=== PATIENT | male | born 1940 | race Caucasian/White ===

== ENCOUNTER → 2017-02-13 | Outpatient (CLI) | payer OTHER, BC ==
[~2017-02-13] MED LIST: ACETAMINOPHEN325 M1 PO; ADVAIR 500-501 EACH INH; AMBEREN PO; ASPIR 8181 MG PO; AVELOX 400 MG400 MG PO; CARISOPRODOL 3350 MG PO; CLONIDINE0.1 PO; DILAUDID2 M1 PO; DUONEB 2.5-0.5 M3 ML INH; FLEXERIL PO; LANSOPRAZOLE30 MG PO; MEGARED OMEGA-1 EAC2 PO; MIRALAX255 GM PO; MS CONTIN15 MG PO; MS CONTIN30 MG PO; MUCINEX FAST-M177 ML PO; MUCUS RELIEF D; MULTIVITAMINS PO; NORCO 10-325 T1 EACH PO; NORCO 5-325 TA1 EACH PO; NYSTATIN 1100000 U/M PO; PACERONE 200 M200 M1 PO; PREDNISONE 10 M10 M1 PO; PREDNISONE 10 M10 MG PO; PREVACID 30MG C30 M1 PO; PROVENTIL INH; RELAFEN750 MG OR; ROCEPHIN 11 GM/100 M IV; SENOKOT-S TABL1 EACH PO; SENOKOT-S1 TA1 PO; SINGULAIR 10 MG10 M1 PO; XARELTO20 MG PO; ZYRTEC 10 MG TA10 MG PO; ZYRTEC10 M2 PO
== END ==
LOC: RAD 02:03
DX: J45.909 Unspecified asthma, uncomplicated (principal); R05 Cough

== ENCOUNTER → 2018-01-11 | Outpatient (CLI) | payer OTHER, BC ==
[~2018-01-11] MED LIST changes: +ALENDRONATE SOD70 MG PO; +ATENOLOL 100MG100 MG PO; +CARDIZEM CD180 MG PO; +DIGOXIN250 MCG PO; +ELIQUIS5 MG PO; +KLOR-CON 1010 MEQ PO; +LASIX 40 MG TAB40 M2 PO; +LEVAQUIN 500 M500 M2 PO; +LISINOPRIL10 MG PO; +MULTAQ400 MG PO; +POTASSIUM20 PO; +PREDNISONE 5 MG5 M1 PO; +TRELEGY ELLIPT1 EACH INH; +ZYRTEC10 M5 PO
--- NOTE | ~2018-01-11 | 2DMMODE ---
[facility] [address] [place] [address] 2 D/M-MODE ECHOCARDIOGRAM Name: DONA EUGENE Room #: REG [facility]#: [id number] Admission: 01/11/18 Attend Phys: Karthik Mohan MD Discharge: Date of : 40 Date of Service: 01/11/18 1048 Report #: [id number] THIS REPORT FOR: //name// APPROVED REPORT Study performed: 01/11/2018 09:54:08 EXAM: Comprehensive 2D, Doppler, and color-flow Echocardiogram Patient Location: Out-Patient Room #: Echo lab Status: routine BSA: 2.18 HR: 68 bpm BP: 132/84 mmHg Other Information Study Quality: Good Indications Atrial flutter 2D Dimensions LVEF(%): 69.50 (>50%) IVSd: 9.43 (7-11mm) LVOT Diam: 21.39 (18-24mm) LVDd: 56.78 mm PWd: 9.57 (7-11mm) Ascending Ao: 34.93 (22-36mm) LVDs: 34.28 (25-40mm) Aortic Root: 31.17 mm IVC: 19.00 mm Brandt's LVEF: 69.50 % Volumes Left Atrial Volume (Systole) Single Plane 4CH: 90.25 mL Single Plane 2CH: 71.08 mL LA ESV Index: 43.00 mL/m2 Aortic Valve AoV Peak Shakeel.: 1.78 m/s AO Peak Gr.: 15.43 mmHg LVOT Max P.13 mmHg LVOT Max V: 1.24 m/s ANAYELI Vmax: 2.49 cm2 AI Vmax: 4.32 m/s AI [place]: 1.34 m/s2 AI PHT: 937.27 ms Mitral Valve [facility] [place] [address] 2 D/M-MODE ECHOCARDIOGRAM Name: DONA EUGENE Room #: [facility]#: [id number] Admission: 01/11/18 Attend Phys: Karthik Mohan MD Discharge: Date of : 40 Date of Service: 01/11/18 1048 Report #: [id number] E/A Ratio: 1.7 MV Decel. Time: 174.53 ms MV E Max Shakeel.: 0.97 m/s MV A Shakeel.: 0.57 m/s MV PHT: 50.61 ms IVRT: 78.43 ms Pulmonary Valve PV Peak Shakeel.: 1.23 m/s PV Peak Gr.: 6.05 mmHg OR End Vmax: 1.70 m/s Pulmonary Vein P Vein S: 0.64 m/s P Vein A: 0.22 m/s P Vein D: 0.85 m/s P Vein A Dur.: 78.4 msec P Vein S/D Ratio: 0.75 Tricuspid Valve TR Peak Shakeel.: 2.93 m/s TR Peak Gr.: 34.66 mmHg PA Pressure: 40.00 mmHg Left Ventricle The left ventricle is normal size. There is normal left ventricular wall thickness. The left ventricular systolic function is normal. The left ventricular ejection fraction is within the normal range. LVEF is 55-60%. This study is not technically sufficient to allow evaluation of the LV diastolic function due to atrial flutter. Right Ventricle The right ventricle is normal size. The right ventricular systolic function is normal. Atria Left atrium is moderately dilated. Right atrium is moderately dilated. Aortic Valve The aortic valve is normal in structure. Aortic valve is calcified. Mild aortic regurgitation. There is no aortic valvular stenosis. Mitral Valve The mitral valve is normal in structure. Mild mitral regurgitation. No evidence of mitral valve stenosis. Tricuspid Valve [facility] [address] [place] [address] 2 D/M-MODE ECHOCARDIOGRAM Name: DONA EUGENE Room #: REG [facility]#: [id number] Admission: 01/11/18 Attend Phys: Karthik Mohan MD Discharge: Date of : 40 Date of Service: 01/11/18 1048 Report #: [id number] The tricuspid valve is normal in structure. There is mild tricuspid regurgitation. Estimated PAP 40 mmHg. There is mild-moderate pulmonary hypertension. Pulmonic Valve The pulmonary valve is normal in structure. Trace pulmonic regurgitation. Great Vessels The aortic root is normal in size. IVC is normal in size and collapses >50% with inspiration. Pericardium There is no pericardial effusion. <Conclusion> The left ventricle is normal size. There is normal left ventricular wall thickness. The left ventricular systolic function is normal. The right ventricle is normal size. Left atrium is moderately dilated. Right atrium is moderately dilated. Mild aortic regurgitation. Mild mitral regurgitation. There is mild tricuspid regurgitation. Estimated PAP 40 mmHg. <ELECTRONICALLY SIGNED> By: Karthik Mohan MD 01/11/18 1048 1048 1048 Karthik Mohan MD /INF
== END ==
LOC: CV 09:40
DX: I08.3 Combined rheumatic disorders of mitral, aortic and tricuspid valves (principal); I48.92 Unspecified atrial flutter

== ENCOUNTER → 2018-01-25 | Outpatient (CLI) | payer OTHER, BC | LOC: NUC 07:24 | DX: I48.92 Unspecified atrial flutter (principal); I10 Essential (primary) hypertension; J44.9 Chronic obstructive pulmonary disease, unspecified; Z87.891 Personal history of nicotine dependence ==

== ENCOUNTER 2018-05-10 04:53 | Inpatient (IN) | payer OTHER, BC ==
[~2018-05-10] VITALS: Ht 175.3 cm; Wt 98.7 kg
--- NOTE | ~2018-05-10 | EKG ---
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 : 1940 Requested By: Elkin Gordon Order Number: [id number] MD: Elkin Gordon Measurements Intervals [place] Rate: 103 P: VA: QRS: 64 QRSD: 127 T: -78 QT: 336 QTc: 440 Interpretive Statements Atrial fibrillation Right bundle branch block Baseline wander in lead(s) V3 Compared to ECG 05/10/2018 04:59:13 Right bundle-branch block now present Ventricular premature complex(es) no longer present Electronically Signed On 05-17-2018 10:06:04 CDT by Elkin Gordno [email or web address] <ELECTRONICALLY SIGNED> By: lEkin Gordon MD, [facility] 05/17/18 1006 0658 0658 Elkin Gordon MD, [facility] /EPI
--- NOTE | ~2018-05-10 | EKG ---
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 : 1940 Requested By: Dot Carpio Order Number: [id number] MD: Elkin Gordon Measurements Intervals [place] Rate: 129 P: LA: QRS: 69 QRSD: 125 T: 16 QT: 347 QTc: 509 Interpretive Statements Atrial fibrillation Premature ventricular complexes ST depr, consider ischemia, anterolateral lds Baseline wander in lead(s) II,III,aVF No previous ECGs available for comparison Electronically Signed On 05-10-2018 9:01:28 CDT by Elkin Gordon [email or web address] <ELECTRONICALLY SIGNED> By: Elkin Gordon MD, [facility] 05/10/18 0901 0459 0459 Elkin Gordon MD, [facility] /EPI
--- NOTE | ~2018-05-10 | PATH ---
[facility] [address] [place] [address] PATHOLOGY RPT PROCEDURE Name: DONA EUGENE Room #: 358-P [facility] IN ..#: [id number] Admission: 05/10/18 Date of : 40 Discharge: 05/17/18 Report #: [id number] Path Case #: [id number] Note [facility] Accession Number: [id number] TESTS RESULT FLAG UNITS REF RANGE LAB Clinician Provided Cytology Information No. of containers..01 Other (Miscellaneous) Source: BAL RUL DIAGNOSIS: 02 BAL RUL NEGATIVE FOR MALIGNANT CELLS. NORMAL BRONCHIAL CELLS AND MACROPHAGES ARE PRESENT. PULMONARY MACROPHAGES PRESENT, INDICATIVE OF LOWER RESPIRATORY TRACT SAMPLING. SPECIMEN CONSISTS OF HEMOSIDERIN-LADEN MACROPHAGES AND BLOOD. Signed out by: 02 Amber Rogers MD, Pathologist NPI- [id number] Performed by: 01 Mireille Becker, Sales Receptionist ([facility]) Gross description: 01 15 ML, WHITE, CLOUDY /LCS FLAG LEGEND: L-Low Normal,H-High Normal,LL-Alert Low,HH-Alert High <-Panic Low,>-Panic High,A-Abnormal,AA-Critical Abnormal Performed at: [address] [place] [address] Antonio De Oliveira MD, [address] [address] Amber Rogers MD, Performed at: [address], [place], [place] [id number] MD Antonio De Oliveira MD Phone: [phone]
--- NOTE | ~2018-05-10 | HC ---
[facility] [place] [address] CONSULTATION Name: VALORIEDONA Room #: 358-P [facility] IN M.R.#: [id number] Admission: 05/10/18 Attend Phys: Dell Crawley DO Discharge: Date of : 40 Report #: [id number] THIS REPORT FOR: //name// CC: Zachary Cash DATE OF SERVICE: 05/10/2018 REFERRAL PHYSICIAN: Dr. Dell Crawley. REASON FOR REFERRAL: Dyspnea. HISTORY OF PRESENT ILLNESS: The patient is a 78-year-old white male who presented to the Emergency Room with progressive dyspnea. A pulmonary consultation was requested. The patient has known severe persistent asthma. He is normally followed longitudinally by Dr. Binu Cash in the office. He was last seen in the office in 02/2018. Baseline FEV1 is 2.17 liters or 75% predicted. He is normally on inhaled corticosteroids along with long-acting beta agonist. He is also on low dose prednisone 5 mg once a day due to severe symptoms. He states that he was doing fairly well until 2 days prior to presentation when he started to develop chills. Yesterday, he started developing chest tightness and progressive dyspnea. With worsening symptoms, he presented to the Emergency Room. Chest x-ray on admission was clear. There are bibasilar fibroses with this previously been noted. He also had prior CT chest, confirming mild bibasilar subpleural pulmonary fibrosis. Otherwise, denies any chest pain, productive cough, nausea, vomiting, diarrhea. PAST MEDICAL HISTORY: As mentioned above. Severe persistent asthma, atrial flutter, mild bronchiectasis, history of tobacco abuse, having stopped smoking in 1999, hemoptysis, hypertension, echocardiogram in 06/2016 was relatively unremarkable except for mild aortic and mitral regurgitation, allergic rhinitis. PAST SURGICAL HISTORY: Notable for prior back surgery, herniorrhaphy, skin cancer resection, tonsillectomy, TURP. [facility] [address] [place] [address] CONSULTATION Name: VALORIEDONA Mena Room #: 358-[facility] IN ..#: [id number] Admission: 05/10/18 Attend Phys: Dell Crawley DO Discharge: Date of : 40 Report #: [id number] ALLERGIES: TO PENICILLIN, REACTIONS NOT SPECIFIED. HOME MEDICATIONS: Prednisone 5 mg once a day, Proventil 2 puffs p.r.n., Fosamax, Eliquis 5 mg once a day for atrial fibrillation, Zyrtec, dronedarone, Trelegy Ellipta 100 mcg/62.5 mcg/25 mcg, Prinivil, Singulair, multivitamins. FAMILY HISTORY: Notable for thyroid cancer in mother. Father with liver cancer. SOCIAL HISTORY: Tobacco history: As mentioned above. He denies any alcohol use. REVIEW OF SYSTEMS: As mentioned above, otherwise 10-point system review negative. PHYSICAL EXAMINATION: GENERAL: He is awake, alert, in no apparent distress. VITAL SIGNS: Temperature is 36.6 degrees Celsius, pulse is 100, respiratory rate is 20, blood pressure is 108/77 mmHg and saturation is 99%. HEENT: Normocephalic, atraumatic. NECK: Supple, without any lymphadenopathy or thyromegaly. CHEST: Breath sounds are decreased bilaterally with mild expiratory wheezes. No rales. CARDIOVASCULAR: Normal S1, S2. There are no murmurs or gallop. There is no JVD. There is no carotid bruit. Pulses are 2+/4+ bilaterally. ABDOMEN: Soft, nontender, moderately obese. No masses felt. GENITOURINARY: Deferred. RECTAL: Deferred. EXTREMITIES: There is no edema, cyanosis or clubbing. LABORATORY DATA: Chest x-ray as mentioned above. EKG shows atrial fibrillation, ST depression, possible ischemia. Otherwise, no other acute findings. D-dimer 0.3. Electrolytes are normal. Hemoglobin 14.7, WBC 9200, platelets are normal. IMPRESSION: 1. Acute respiratory distress in this 78-year-old white male. Etiology due to exacerbation of severe persistent asthma. No evidence of respiratory tract infection at this time, although the patient did have chills 24 hours prior to presentation. Early infection cannot be ruled out including lower respiratory tract infection. 2. Atrial fibrillation with rapid ventricular response, likely due to respiratory distress. 3. Chest pain, suspect atypical. Cardiology has been consulted. 4. Hypertension. [address] [address] CONSULTATION Name: DONA EUGENE Room #: 358-P ADM IN M.R.#: [id number] Admission: 05/10/18 Attend Phys: Dell Crawley DO Discharge: Date of : 40 Report #: [id number] RECOMMENDATIONS: Corticosteroids, bronchodilators, broad-spectrum antibiotics. DVT and GI prophylaxis will be addressed. Thank you for this consultation. <ELECTRONICALLY SIGNED> By: Myles Guerrier MD 05/11/18 1608 1327 1856 yMles Guerrier MD /nt
--- NOTE | ~2018-05-10 | P ---
[facility] [place] [address] PROCEDURE REPORT Name: VALORIEDONA Room #: 358-P [facility] IN M.R.#: [id number] Admission: 05/10/18 Attend Phys: Dell Crawley DO Discharge: Date of : 40 Report #: [id number] THIS REPORT FOR: //name// CC: Zachary Cash DATE OF SERVICE: 05/13/2018 PROCEDURE: Fiberoptic bronchoscopy with bronchoalveolar lavage in the anterior segment of the right upper lobe. INDICATION: Cavitary pulmonary nodule. ASA classification class 3. PROCEDURE NOTATION: After discussing risks and benefits of planned procedure with the patient, he desired to proceed. After obtaining informed consent, he was brought to chemical laboratory scientist 3, where he was placed on continuous cardiopulmonary monitoring and supplemental oxygen, then given 2% lidocaine nebulized to anesthetize the upper respiratory tract. Once complete, he received conscious sedation. A total of 3 mg of Versed and 25 mcg of fentanyl were titrated during the procedure to provide adequate sedation. Once accomplished, the patient was laid in supine posturing. When laid in supine posturing, within moments the patient's face became a bit erythematous and obvious wheezing was noted. There was some increased respiratory effort noted. Oxygen had to be titrated up during the procedure up to 15 liters by high flow nasal cannula to maintain saturations. Bronchoscope was passed through an oral bite block until vocal cords were visualized. 1% lidocaine was instilled in the vocal cords to provide topical anesthesia. Bronchoscope was then passed in the trachea. 1% lidocaine was instilled in the tracheobronchial tree to provide topical anesthesia. Airways were then surveyed. FINDINGS: Mainstem, lobar, segmental and subsegmental bronchi were explored. There was significant erythema diffusely. No endobronchial mass noted. Mucopurulent secretions were emanating from the right upper lobe, particularly at the anterior segment. Fluoroscopy was utilized to find the cavitary nodule; however, biopsies were not performed due to the patient's increased respiratory difficulties. A bronchial lavage was only performed in the anterior segment of the right upper lobe and sent for microbiologic and cytologic tests. The patient tolerated otherwise well with no noted complications. IMPRESSION: Cavitary right upper lobe, process likely infectious status post bronchoscopy with lavage. [address] [address] PROCEDURE REPORT Name: EUGENEDONA Room #: 358-P [facility] IN .R.#: [id number] Admission: 05/10/18 Attend Phys: Dell Crawley DO Discharge: Date of : 40 Report #: [id number] PLAN: Await microbiologic and cytologic tests. By: 1020 2218 Binu Cash MD /nt
--- NOTE | ~2018-05-10 | 2DMMODE ---
[facility] [address] [facility] [place] [address] 2 D/M-MODE ECHOCARDIOGRAM Name: DONA EUGENE Room #: 358-P [facility] IN ..#: [id number] Admission: 05/10/18 Attend Phys: Dell Crawley, Discharge: Date of : 40 Date of Service: 05/11/18 1743 Report #: [id number] THIS REPORT FOR: //name// APPROVED REPORT Study performed: 05/11/2018 14:54:48 EXAM: Comprehensive 2D, Doppler, and color-flow Echocardiogram Patient Location: Bedside Room #: [facility] Status: routine BSA: 2.20 HR: 115 bpm BP: 114/87 mmHg Rhythm: Atrial Fibrillation Other Information Study Quality: Adequate Indications COPD Atrial Fibrillation Dyspnea Hypertension/HDD 2D Dimensions RVDd: 49.13 mm LVEF(%): 66.10 (>50%) IVSd: 12.77 (7-11mm) LVOT Diam: 24.32 (18-24mm) LVDd: 45.27 mm PWd: 11.99 (7-11mm) Ascending Ao: 35.83 (22-36mm) LVDs: 28.85 (25-40mm) Aortic Root: 33.46 mm IVC: 29.00 mm Brandt's LVEF: 66.10 % Volumes Left Atrial Volume (Systole) Single Plane 4CH: 59.70 mL Single Plane 2CH: 47.02 mL LA ESV Index: 26.00 mL/m2 Aortic Valve AoV Peak Shakeel.: 1.39 m/s AO Peak Gr.: 9.34 mmHg LVOT Max P.75 mmHg LVOT Max V: 0.82 m/s ANAYELI Vmax: 2.75 cm2 [facility] [employer] [place] [address] 2 D/M-MODE ECHOCARDIOGRAM Name: DONA EUGENE Mena Room [facility]: [facility]#: [id number] Admission: 05/10/18 Attend Phys: Dell Crawley, Discharge: Date of : 40 Date of Service: 05/11/18 1743 Report #: [id number] Pulmonary Valve PV Peak Shakeel.: 1.15 m/s PV Peak Gr.: 5.33 mmHg Tricuspid Valve TR Peak Shakeel.: 2.93 m/s TR Peak Gr.: 34.23 mmHg PA Pressure: 44.00 mmHg TV Max P.00 mmHg Left Ventricle The left ventricle is normal size. There is normal LV segmental wall motion. There is normal left ventricular wall thickness. Left ventricular systolic function is moderately decreased. LVEF is 35-40%. This study is not technically sufficient to allow evaluation of the LV diastolic function due to atrial fibrillation. Right Ventricle Right ventricle is at the upper limits of normal. The right ventricular systolic function is normal. Atria Left atrium is dilated. Right atrium is dilated. Aortic Valve The aortic valve is normal in structure. Trace aortic regurgitation. There is no aortic valvular stenosis. Mitral Valve The mitral valve is normal in structure. Mild mitral regurgitation. No evidence of mitral valve stenosis. Tricuspid Valve The tricuspid valve is normal in structure. There is mild tricuspid regurgitation. Estimated PAP 44 mmHg. There is moderate pulmonary hypertension. Pulmonic Valve The pulmonary valve is normal in structure. Trace pulmonic regurgitation. Great Vessels The aortic root is normal in size. IVC is dilated and collapses >50% with inspiration. Pericardium There is no pericardial effusion. [facility] [address] [place] [address] 2 D/M-MODE ECHOCARDIOGRAM Name: ZACKERY EUGENEHARRISON San Room #: 358-P [facility] IN ..#: [id number] Admission: 05/10/18 Attend Phys: Dell Crawley, Discharge: Date of : 40 Date of Service: 05/11/181742 Report #: [id number] <Conclusion> The left ventricle is normal size. Left ventricular systolic function is moderately decreased. Left atrium is dilated. Right atrium is dilated. Trace aortic regurgitation. Mild mitral regurgitation. There is mild tricuspid regurgitation. Estimated PAP 44 mmHg. There is moderate pulmonary hypertension. <ELECTRONICALLY SIGNED> By: Karthik Mohan MD 05/11/181742 42 174 Karthik Mohan MD /JOSÉ MIGUEL
--- NOTE | ~2018-05-10 | CATHLAB ---
[place] [address] [place] [address] INVASIVE PROCEDURE REPORT Name: EUGENEDONA Room #: 358-P [facility] IN [facility]#: [id number] Admission: 05/10/18 Attend Phys: Dell Crawley, Discharge: Date of : 40 Date of Service: 05/11/181811 Report #: [id number] THIS REPORT FOR: //name// APPROVED REPORT Study performed: 05/11/2018 08:47:33 Patient Details Patient Status: In-Patient Room #: The patient is a 78 year-old male Event Personnel Karthik Mohan Registered Public Surveyor, Rahat Zuniga RN, Lorna Segundo Sandifer, David Monitor, Russ Holley RN Food Inspector Procedures Performed Coronary Angiography Only [id number] CORANG Indication Atrial fibrillation, Dyspnea, Chest pain Risk Factors Chronic Lung DiseasePhysical Activity, Hypertension Procedure Narrative The Left Groin^ was infiltrated with 1% Lidocaine subcutaneous anesthesia. A PINNACLE 4FR Sheath #[id number] sheath was inserted into the LFA^. Coronary angiography was performed using coronary diagnostic catheters. The right coronary system was accessed and visualized with a JR4 catheter. The left coronary system was accessed and visualized with a 4FR AL2 #[id number] catheter. Hemostasis was obtained with manual pressure following sheath removal without any complications. The patient tolerated the procedure well and there were no complications associated with the procedure. There was no hematoma. Intraoperative Conscious Sedation Sedation start time: 9.27 Case end Time: 9.43 Fentanyl 50 mcg Versed 1.5 mg Fluoro Time: 6.40 minutes Dose: DAP 9455 cGycm2 9.50 mGy Contrast Type and Amount: Omnipaque 60 ml [facility] [place] [address] INVASIVE PROCEDURE REPORT Name: DONA EUGENE Room #: 358-[facility]#: [id number] Admission: 05/10/18 Attend Phys: Dell Crawley, Discharge: Date of : 40 Date of Service: 05/11/18 1812 Report #: [id number] Coronary Angiography The patient's coronary anatomy is right dominant. Diagnostic Cath Left Main Large-caliber vessel, no flow limiting lesions. LAD Moderate to large-caliber vessel, traveling down the anterior wall and wrapping around the apex. There is mild disease in the proximal and mid segments, 20%. Diagonal 1 Patent vessel, no flow-limiting lesions. Circumflex Patent vessel, no flow-limiting lesions. OM1 Patent vessel, no flow-limiting lesions. Right Coronary Large, dominant vessel with minimal irregularities in the proximal and mid segments. R PDA Patent vessel, no flow-limiting lesions. RPLV Patent vessel, no flow-limiting lesions. Left Ventriculography Left Ventriculography was not performed. Hemodynamics The aortic pressure is 102/79 mmHg with a mean of 96 mmHg. Conclusion 1. Patent coronary arteries, with mild disease in the LAD. 2. Recommend medical therapy. 3. Echo to evaluate LV systolic function. <ELECTRONICALLY SIGNED> By: Karthik Mohan MD 05/11/181811 11 11 Karthik Mohan MD /INF
--- NOTE | ~2018-05-10 | HC ---
[facility] [place] [address] CONSULTATION Name: VALORIEDONA Room #: 358-P [facility] IN M.R.#: [id number] Admission: 05/10/18 Attend Phys: Dell Crawley DO Discharge: Date of : 40 Report #: [id number] THIS REPORT FOR: //name// CC: Zachary Cash INFECTIOUS DISEASE CONSULTATION REASON FOR CONSULTATION: I was asked to evaluate concerning right lung cavitary nodule. HISTORY OF PRESENT ILLNESS: The patient is a 78-year-old with underlying history of COPD, asthma, bronchiectasis, atrial fibrillation. I had seen him previously in 2010, where he was diagnosed with strep pneumoniae, L2-L3 diskitis. He was later evaluated in 2013 for left lower lobe pulmonary infiltrate, which was not responding to treatment. He underwent bronchoscopy with no organisms identified. Overall, improved from this and then followed in the outpatient pulmonary clinic since. He presents now with an acute onset of fever, chills, shortness of breath, chest discomfort with atrial fibrillation and rapid ventricular response. Admitted to the Emergency Room on 05/10/2018. Subsequently, he has been afebrile and hemodynamically stable. His heart rate has been controlled. CT imaging showed a new right upper lobe mass with cavitation. This was 2.5 x 2.3 cm and abutted the fissure. There was bronchopneumonia also evident in the left lower lobe. Compared to 2014, the right upper lobe nodule was new. The patient reports no travel outside the [place] in the last year. [place]. No HIV risk factors. Previous tuberculosis testing in 2010 was negative. He reports feeling well 2 days prior to his admission. He has had no weight loss, night sweats, fatigue, shortness of breath. His back pain has resolved. Review of systems notes no skin, lymph, GI or complaints. He denies any hemoptysis. He has been followed for thyroid nodule, which had previously been biopsied benign. PAST MEDICAL HISTORY: Asthma, COPD, bronchiectasis, atrial fibrillation, smoker of cigarettes in the past, hypertension, herniorrhaphy, skin cancer, TURP, prostate cancer, depression, previous back surgery, L2-L3 diskitis, vasectomy. ALLERGIES: PENICILLIN. He does tolerate cephalosporins. MEDICATIONS: As noted above, on Levaquin and Solu-Medrol. FAMILY HISTORY: Thyroid cancer. SOCIAL HISTORY: Past smoker, no significant alcohol intake. REVIEW OF SYSTEMS: As noted above. [facility] [address] [place] [address] CONSULTATION Name: DONA EUGENE Room #: 358-P [facility]#: [id number] Admission: 05/10/18 Attend Phys: Dell Crawley DO Discharge: Date of : 40 Report #: [id number] PHYSICAL EXAMINATION: VITAL SIGNS: He is afebrile, hemodynamically stable. GENERAL: He is alert and cooperative and pleasant, in no acute distress. HEENT: Unremarkable. NECK: Nodule palpable in the thyroid. LUNGS: Decreased breath sounds bilaterally, no consolidation. HEART: Regular, without murmur. ABDOMEN: Soft and nontender. EXTREMITIES: Unremarkable. NEUROLOGIC: Normal. LABORATORY STUDIES: Sodium 134, potassium 4.4, bicarbonate 22, creatinine 1, hemoglobin 15, platelet count 223,000. White count is 12.8. Blood cultures were negative to date. CT scan as noted above. IMPRESSION AND PLAN: A 78-year-old with underlying atrial fibrillation, chronic obstructive pulmonary disease, asthma, with a new right upper lobe spiculated mass. This has onset since 2015. He is a previous smoker, making cancer a consideration. Infectious etiology also consider considering he had fever and chills prior to his admission. Would recommend further workup including bronchoscopy for cytology as well as cultures for bacteria, fungus and AFB. We will check HIV, sedimentation rate, histoplasma serology, TB screen, urine antigen for Legionella and strep pneumo. We will continue his antibiotic program. If cultures remain negative, anticipate completing a course of treatment and reimaging. If no improvement, we will need to consider biopsy. <ELECTRONICALLY SIGNED> By: Rommel Monique MD 05/14/18 1358 [id number] Rommel Monique MD /nt
[~2018-05-10 04:53] MED LIST changes: -ALENDRONATE SOD70 MG PO; -ATENOLOL 100MG100 MG PO; -CARDIZEM CD180 MG PO; -DIGOXIN250 MCG PO; -ELIQUIS5 MG PO; -KLOR-CON 1010 MEQ PO; -LASIX 40 MG TAB40 M2 PO; -LEVAQUIN 500 M500 M2 PO; -LISINOPRIL10 MG PO; -MULTAQ400 MG PO; -POTASSIUM20 PO; -PREDNISONE 5 MG5 M1 PO; -TRELEGY ELLIPT1 EACH INH; -ZYRTEC10 M5 PO
[2018-05-10] MEDS ORDERED: MULTAQ400 MG PO (05:05)
[2018-05-10] MEDS ORDERED: ELIQUIS5 MG PO (05:05)
[2018-05-10] MEDS ORDERED: LISINOPRIL10 MG PO (05:06)
[2018-05-10] MEDS ORDERED: PREDNISONE 5 MG5 M1 PO (05:06)
[2018-05-10] MEDS ORDERED: ZYRTEC10 M5 PO (05:07)
[2018-05-10] MEDS ORDERED: TRELEGY ELLIPT1 EACH INH (05:08)
[2018-05-10] MEDS ORDERED: ALENDRONATE SOD70 MG PO (05:08)
[2018-05-10] MEDS ORDERED: SINGULAIR 10 MG10 M1 PO (05:09)
[2018-05-10] MEDS ORDERED: KLOR-CON 1010 MEQ PO (05:09)
[2018-05-10 05:21] LABS: ABSOLUTE NEUTROPHILS 5.7 thou/uL (1.4-8.2); BASOPHILS 0.9 % (0.0-2.0); EOSINOPHILS 1.5 % (0.0-3.0); HEMATOCRIT 42.7 % (42.0-52.0); HEMOGLOBIN 14.7 gm/dL (14.0-18.0); LYMPHOCYTES 25.7 % (24.0-44.0); MCHC 34.4 g/dL (28.0-37.0); MCV 90.2 fL (80.0-100.0); MONOCYTES 10.2 % (1.0-8.0); PLATELET COUNT 185 thou/uL (150-400); POLYS 61.7 % (36.0-66.0); RBC 4.73 mil/uL (4.50-6.00); RDW 13.9 % (10.5-14.5); WBC 9.2 thou/uL (4.0-11.0)
[2018-05-10 05:23] LABS: ANION GAP 12 mmol/L (7-16); BUN 16 mg/dL (7-18); CHLORIDE 103 mmol/L (98-107); CO2 23 mmol/L (21-32); GLUCOSE 99 mg/dL (74-106); POTASSIUM 4.2 mmol/L (3.5-5.1); SODIUM 138 mmol/L (136-145)
[2018-05-10 05:28] LABS: APTT 26.9 Seconds (24.5-32.8)
[2018-05-10 05:33] LABS: TROPONIN-I < 0.04 ng/mL (<0.06)
[2018-05-10 06:30] VITALS: BP 151/101
[2018-05-10 08:21] VITALS: BP 108/77
[2018-05-10 12:15] VITALS: BP 117/82
[2018-05-10 16:14] VITALS: BP 105/75
[2018-05-11] VITALS (13 sets, daily range): BP systolic 97–130; BP diastolic 72–96
[2018-05-12 04:45] VITALS: BP 122/82
[2018-05-12 06:28] LABS: HEMATOCRIT 44.1 % (42.0-52.0); MCH 30.7 pg (26.0-34.0); MCV 90.3 fL (80.0-100.0); RBC 4.88 mil/uL (4.50-6.00); RDW 14.1 % (10.5-14.5); WBC 12.8 thou/uL (4.0-11.0)
[2018-05-12 06:48] LABS: CALCIUM 8.7 mg/dL (8.5-10.1); POTASSIUM 4.4 mmol/L (3.5-5.1)
[2018-05-12 07:36] VITALS: BP 105/67
[2018-05-12 11:14] VITALS: BP 107/78
[2018-05-12 15:42] VITALS: BP 102/70
[2018-05-12 19:24] VITALS: BP 100/73
[2018-05-13 04:04] VITALS: BP 110/80
[2018-05-13 08:07] VITALS: BP 126/99
[2018-05-13 12:09] VITALS: BP 107/79
[2018-05-13 15:32] VITALS: BP 109/71
[2018-05-13 19:27] VITALS: BP 114/76
[2018-05-14 00:06] LABS: HIV ANTIBODY Non Reactive (Non Reactive)
[2018-05-14 05:55] VITALS: BP 113/95
[2018-05-14 08:06] VITALS: BP 116/89
[2018-05-14 12:18] VITALS: BP 120/94
[2018-05-14 16:35] VITALS: BP 118/88
[2018-05-14 19:18] VITALS: BP 116/74
[2018-05-15 04:15] VITALS: BP 121/83
[2018-05-15 07:42] VITALS: BP 159/108
[2018-05-15 12:00] VITALS: BP 120/62
[2018-05-15 12:04] VITALS: BP 104/89
[2018-05-15 17:52] VITALS: BP 122/86
[2018-05-15 19:06] LABS: HISTOPLASMA MYCELIAL-CF Negative (Neg:<1:2); HISTOPLASMA MYCELIAL-ID Negative (Negative)
[2018-05-15 19:07] VITALS: BP 115/82
[2018-05-16 03:15] VITALS: BP 113/83
[2018-05-16 07:53] VITALS: BP 124/93
[2018-05-16 11:57] VITALS: BP 116/83
[2018-05-16 15:53] VITALS: BP 124/96
[2018-05-16 19:14] VITALS: BP 100/67
[2018-05-16 20:58] VITALS: BP 106/73
[2018-05-17 03:15] VITALS: BP 105/74
[2018-05-17 05:55] LABS: HEMATOCRIT 48.8 % (42.0-52.0); HEMOGLOBIN 16.6 gm/dL (14.0-18.0); MCH 30.6 pg (26.0-34.0); MCHC 34.1 g/dL (28.0-37.0); MCV 89.8 fL (80.0-100.0); RBC 5.43 mil/uL (4.50-6.00); RDW 13.6 % (10.5-14.5)
[2018-05-17 06:05] LABS: CALCIUM 8.6 mg/dL (8.5-10.1); CREATININE 1.2 mg/dL (0.7-1.3); POTASSIUM 4.4 mmol/L (3.5-5.1)
[2018-05-17 07:43] VITALS: BP 111/87
[2018-05-17] MEDS ORDERED: ATENOLOL 100MG100 MG PO (08:51)
[2018-05-17] MEDS ORDERED: CARDIZEM CD180 MG PO (08:51)
[2018-05-17] MEDS ORDERED: DIGOXIN250 MCG PO (08:51)
[2018-05-17] MEDS ORDERED: LEVAQUIN 500 M500 M2 PO (09:12)
[2018-05-17] MEDS ORDERED: PREDNISONE 5 MG5 M1 PO (09:13)
[2018-05-17 09:37] VITALS: BP 111/87
== END 2018-05-17 10:04 | disposition home or self-care (01) | DRG 853 ==
LOC: ER 04:53 → EROBS 05:49 → 3W 05:49 → EROBS 06:45 → 3W 06:45 → ENTRNSPT 05-17 09:52 → EDTRNSPTSTS 05-17 09:59 → 3W 05-17 10:04
PROVIDERS: Emergency Medicine; Internal Medicine Cardiovascular Disease; Internal Medicine Pulmonary Disease; Specialist
DX: A41.9 Sepsis, unspecified organism (principal); J18.9 Pneumonia, unspecified organism; I48.92 Unspecified atrial flutter; J45.901 Unspecified asthma with (acute) exacerbation; I42.9 Cardiomyopathy, unspecified; J44.0 Chronic obstructive pulmonary disease with (acute) lower respiratory infection; F32.9 Major depressive disorder, single episode, unspecified; I10 Essential (primary) hypertension; E04.1 Nontoxic single thyroid nodule; I25.10 Atherosclerotic heart disease of native coronary artery without angina pectoris; R91.8 Other nonspecific abnormal finding of lung field; I48.91 Unspecified atrial fibrillation; Z85.46 Personal history of malignant neoplasm of prostate; Z88.0 Allergy status to penicillin; Z80.8 Family history of malignant neoplasm of other organs or systems; Z98.52 Vasectomy status; Z87.891 Personal history of nicotine dependence; Z79.82 Long term (current) use of aspirin; Z79.899 Other long term (current) drug therapy; Z79.01 Long term (current) use of anticoagulants; Z79.52 Long term (current) use of systemic steroids
CPT/HCPCS: 10779

== ENCOUNTER → 2018-05-27 | Outpatient (CLI) | payer OTHER, BC ==
[~2018-05-27] MED LIST changes: +ALENDRONATE SOD70 MG PO; +ATENOLOL 100MG100 MG PO; +CARDIZEM CD180 MG PO; +DIGOXIN250 MCG PO; +ELIQUIS5 MG PO; +KLOR-CON 1010 MEQ PO; +LEVAQUIN 500 M500 M2 PO; +LISINOPRIL10 MG PO; +MULTAQ400 MG PO; +PREDNISONE 5 MG5 M1 PO; +TRELEGY ELLIPT1 EACH INH; +ZYRTEC10 M5 PO
== END ==
LOC: RAD 16:00
DX: J18.1 Lobar pneumonia, unspecified organism (principal); M47.894 Other spondylosis, thoracic region; J98.11 Atelectasis

== ENCOUNTER → 2018-06-18 | Outpatient (CLI) | payer OTHER, BC ==
[2018-06-18 07:51] LABS: HEMATOCRIT 42.7 % (42.0-52.0); HEMOGLOBIN 14.7 gm/dL (14.0-18.0); MCH 30.9 pg (26.0-34.0); MCHC 34.5 g/dL (28.0-37.0); MCV 89.6 fL (80.0-100.0); RBC 4.76 mil/uL (4.50-6.00); RDW 14.3 % (10.5-14.5); WBC 9.3 thou/uL (4.0-11.0)
[2018-06-18 08:07] LABS: CALCIUM 8.7 mg/dL (8.5-10.1); CREATININE 1.2 mg/dL (0.7-1.3); POTASSIUM 4.7 mmol/L (3.5-5.1)
[2018-06-18 08:13] LABS: ALBUMIN 3.7 g/dL (3.4-5.0); TOTAL BILIRUBIN 0.5 mg/dL (<0.1-1.0); TOTAL PROTEIN 7.2 g/dL (6.4-8.2)
== END ==
LOC: CAT 07:26
PROVIDERS: Internal Medicine Cardiovascular Disease
DX: I48.0 Paroxysmal atrial fibrillation (principal); I25.10 Atherosclerotic heart disease of native coronary artery without angina pectoris; J98.11 Atelectasis; E04.1 Nontoxic single thyroid nodule; M85.89 Other specified disorders of bone density and structure, multiple sites; I10 Essential (primary) hypertension; J44.9 Chronic obstructive pulmonary disease, unspecified; M81.0 Age-related osteoporosis without current pathological fracture; Z88.0 Allergy status to penicillin

== ENCOUNTER 2018-08-20 13:24 | Emergency (ER) | payer OTHER, BC ==
[~2018-08-20] VITALS: Ht 175.3 cm; Wt 103.4 kg
[2018-08-20] MEDS ORDERED: LASIX 40 MG TAB40 M2 PO (13:44)
[2018-08-20] MEDS ORDERED: TRELEGY ELLIPT1 EACH INH (13:50)
[2018-08-20] MEDS ORDERED: POTASSIUM20 PO (13:51)
== END 2018-08-20 15:07 | disposition home or self-care (01) ==
LOC: ER 13:24
DX: R04.0 Epistaxis (principal); Z87.891 Personal history of nicotine dependence; Z88.0 Allergy status to penicillin; Z85.46 Personal history of malignant neoplasm of prostate; Z85.118 Personal history of other malignant neoplasm of bronchus and lung

== ENCOUNTER 2018-10-03 22:31 | Inpatient (IN) | payer OTHER, BC ==
[~2018-10-03] VITALS: Ht 152.4 cm; Wt 106.1 kg
--- NOTE | ~2018-10-03 | HC ---
[facility] [place] [address] CONSULTATION Name: DONA EUGENE Mena Room #: 220-P ADM IN M.R.#: [id number] Admission: 10/04/18 Attend Phys: Alvin Garza MD Discharge: Date of : 40 Report #: [id number] THIS REPORT FOR: //name// CC: Zachary Hussein MD Primary Care Physician Alvin Chery REASON FOR CONSULTATION: Stage 2B right upper lobe non-small cell lung cancer. addendum: MRI should results came back after my visit. this showed 1.6cm lesion within the right scapula at the junction of the glenoid and acromion consistent w met disease. There is cortical disruption. We reviewed MRI at chest conference, this would be difficult to biopsy due to thin bone. They suggested PET to see if other lesions first. If no other lesion found could do image directed bx of this lesion. The earlier PET scan had shown mild right shoulder activity duggesting inflammatory or degenerative arthritic changes. Above discussed with pt. Plan made for outpt pet and follow up and probable biopsy to be discussed after addtional imaging. HISTORY OF PRESENT ILLNESS: The patient is a 78-year-old gentleman that I saw last week who was having dyspnea on exertion. Over the weekend, he developed some worsening right shoulder pain that maybe was radiating down his arm. He came to the ER for admission and was admitted for the shortness of air. He has had a CT angio done here that shows inflammatory changes present in the lung bases bilaterally more prominent in the left lower lobe and developing lower lobe pneumonia could also be present. The mass in the right upper lobe was slightly more prominent in size and consolidated than 06/18/2018. No evidence of acute pulmonary emboli. The patient denies fevers, chills, does have a slight cough and does have shortness of air on exertion. No new changes in bowel or bladder difficulties. No blood in his urine or stool. He does have some slight ankle swelling more on the right than the left. PAST MEDICAL HISTORY: Past history is notable for history of the right upper lobe stage 2B lung cancer. He completed radiation therapy with Dr. Caren Chery on 09/15/2018. Past history then also has atrial fibrillation with rapid ventricular response, history of asthma, COPD, hypertension, prostate cancer not requiring any therapy at this time and also osteopenia. MEDICATIONS: At this time in the hospital currently include insulin on a sliding scale, montelukast 10 mg at bedtime, methylprednisolone 80 q. 6 IV, [place] [address] CONSULTATION Name: DONA EUGENE Room #: 220-[facility] IN M.R.#: [id number] Admission: 10/04/18 Attend Phys: Alvin Garza MD Discharge: Date of : 40 Report #: [id number] albuterol 2.5 mg q. hour p.r.n., furosemide 40 mg b.i.d. IV, morphine p.r.n., diltiazem CD 180 mg at lunchtime, potassium chloride 20 mEq daily, multivitamins with minerals daily, aspirin 81 mg daily, lisinopril 10 daily, atenolol 100 b.i.d., digoxin 0.25 daily, amiodarone 200 mg daily, apixaban 5 mg b.i.d., loratadine 10 mg daily, ipratropium respiratory therapy q. 6, 0.5 and budesonide 0.5 respiratory therapy b.i.d. Various PRNs. PHYSICAL EXAMINATION: GENERAL: The patient appears his stated age, is seated on the edge of the bed eating breakfast. VITAL SIGNS: Height is 5 feet 9 inches, 152.4 cm. Weight 234 pounds, 106.4 kilograms. He is afebrile with a blood pressure of 115/73, O2 sat 90%, respirations 23 and pulse 76. MOOD: He is alert, pleasant and conversant. LUNGS: Do not have any definite rhonchi or wheezes at this time. He has some slight delayed respiratory motion. HEART: Appears regular rate. LYMPHATIC: No enlarged lymph nodes in the supraclavicular, cervical, axillary or inguinal region. ABDOMEN: Slightly obese. EXTREMITIES: Without clubbing or cyanosis. There may be some trace edema in the right ankle. LABORATORY DATA: This admit shows a BUN of 28 and creatinine 1.1. Liver functions normal. White count 8.6, hemoglobin 13.8 and platelets 204. Differential nonacute. He had the CTA chest as mentioned above. ASSESSMENT AND PLAN: 1. Stage 2B right upper lobe adenocarcinoma, completed radiation therapy, now under discussion about whether to receive adjuvant chemotherapy for 10-14% survival benefit. He has not made up his final mind. Some patients would chose it and some would not at his age. 2. Shortness of air, may be exacerbation of COPD, could be radiation pneumonitis. I would expect to be more cough with that. It seems to be slightly better with steroids. Could also have the patient follow up with Dr. Caren Chery or could consult her if needed. Continue steroids for now and aerosol treatments and note that the patient is currently not on any antibiotics and we will defer to others whether those are needed or not. I do not feel strongly either way. 3. Hypertension. Various meds. 4. Slight fluid overload. Diuretics. [facility] [address] [place] [address] CONSULTATION Name: DONA EUGENE Room #: 220-P ADM IN .R.#: [id number] Admission: 10/04/18 Attend Phys: Alvin Garza MD Discharge: Date of : 40 Report #: [id number] 4. Atrial fibrillation. Amiodarone, diltiazem and Eliquis. We will follow with you. <ELECTRONICALLY SIGNED> By: Darin Gonzalez MD 10/06/18 0821 0911 0334 Darin Gonzalez MD /nt
--- NOTE | ~2018-10-03 | EKG ---
[address] [place] [address] ELECTROCARDIOGRAM REPORT Name: DONA EUGENE Room #: 454-P ADM IN .R.#: [id number] Admission: 10/04/18 Attend Phys: Alvin Garza MD Discharge: Date of : 40 Report #: [id number] THIS REPORT FOR: //name// [facility] ED Test Date: 2018-10-03 Test Time: 22:48:43 Pat Name: DONA EUGENE Department: Room: [facility] Gender: M Learning And Development Officer: maxi : 1940 Requested By: Milady Galvan Order Number: [id number] MD: Elkin [place] Measurements Intervals [place] Rate: 50 P: MD: QRS: 48 QRSD: 140 T: 41 QT: 506 QTc: 462 Interpretive Statements Sinus bradycardia Right bundle branch block Compared to ECG 05/17/2018 06:58:23 Atrial fibrillation no longer present ST and T wave abnormality is less pronounced Electronically Signed On 10-04-2018 8:10:18 KAIAKO KURA TUARUA by Elkin [place] [email or web address] <ELECTRONICALLY SIGNED> By: Elkin [place] MD, [facility] 10/04/18 0810 2248 2248 Elkin [place] MD, [facility] /EPI
--- NOTE | ~2018-10-03 | 2DMMODE ---
[facility] [place] [address] 2 D/M-MODE ECHOCARDIOGRAM Name: DONA EUGENE Room #: 454-P [facility] IN [facility]#: [id number] Admission: 10/04/18 Attend Phys: Alvin Garza MD Discharge: Date of : 40 Date of Service: 10/04/18 1152 Report #: [id number] THIS REPORT FOR: //name// APPROVED REPORT Study performed: 10/04/2018 10:59:42 EXAM: Comprehensive 2D, Doppler, and color-flow Echocardiogram Patient Location: Bedside Room #: 454 Status: routine BSA: 2.21 HR: 56 bpm BP: 143/87 mmHg Rhythm: Bradycardia Other Information Study Quality: Adequate Indications COPD Dyspnea Cardiomyopathy Hypertension/HDD 2D Dimensions RVDd: 41.15 mm IVSd: 8.44 (7-11mm) LVOT Diam: 21.17 (18-24mm) LVDd: 57.42 mm PWd: 8.89 (7-11mm) Ascending Ao: 34.63 (22-36mm) LVDs: 36.32 (25-40mm) Aortic Root: 31.17 mm IVC: 23.00 mm Volumes Left Atrial Volume (Systole) Single Plane 4CH: 117.72 mL Single Plane 2CH: 64.96 mL LA ESV Index: 45.00 mL/m2 Aortic Valve AoV Peak Shakeel.: 1.81 m/s AO Peak Gr.: 13.08 mmHg LVOT Max P.58 mmHg LVOT Max V: 1.18 m/s ANAYELI Vmax: 2.30 cm2 Mitral Valve [facility] [address] [place] [address] 2 D/M-MODE ECHOCARDIOGRAM Name: DONA EUGENE Room #: 454-P [facility] IN [facility]#: [id number] Admission: 10/04/18 Attend Phys: Alvin Garza MD Discharge: Date of : 40 Date of Service: 10/04/18 1152 Report #: [id number] E/A Ratio: 1.5 MV Decel. Time: 288.16 ms MV E Max Shakeel.: 0.82 m/s MV A Shakeel.: 0.55 m/s MV PHT: 83.57 ms IVRT: 83.04 ms Pulmonary Valve PV Peak Shakeel.: 1.11 m/s PV Peak Gr.: 5.00 mmHg AR End Vmax: 1.44 m/s Pulmonary Vein P Vein S: 0.77 m/s P Vein A: 0.18 m/s P Vein D: 0.29 m/s P Vein A Dur.: 115.3 msec P Vein S/D Ratio: 2.66 Tricuspid Valve TR Peak Shakeel.: 3.04 m/s TR Peak Gr.: 36.99 mmHg PA Pressure: 47.00 mmHg Left Ventricle The left ventricle is normal size. There is normal LV segmental wall motion. There is normal left ventricular wall thickness. The left ventricular systolic function is normal. The left ventricular ejection fraction is within the normal range. LVEF is 55%. Grade II - pseudonormal filling dynamics. Right Ventricle Right ventricle is at the upper limits of normal. The right ventricular systolic function is normal. Atria Left atrium is dilated. Right atrium is dilated. Aortic Valve The aortic valve is normal in structure. Aortic valve is calcified. Mild aortic regurgitation. There is no aortic valvular stenosis. Mitral Valve The mitral valve is normal in structure. Mild mitral regurgitation. No evidence of mitral valve stenosis. Tricuspid Valve The tricuspid valve is normal in structure. There is mild tricuspid [address] [address] 2 D/M-MODE ECHOCARDIOGRAM Name: DONA EUGENE Room #: 454-P [facility] IN [facility]#: [id number] Admission: 10/04/18 Attend Phys: Alvin Garza MD Discharge: Date of : 40 Date of Service: 10/04/18 1152 Report #: [id number] regurgitation. Estimated PAP 47 mmHg. There is moderate pulmonary hypertension. Pulmonic Valve The pulmonary valve is normal in structure. Trace pulmonic regurgitation. Great Vessels The aortic root is normal in size. IVC is dilated and collapses >50% with inspiration. Pericardium There is no pericardial effusion. <Conclusion> The left ventricle is normal size. There is normal left ventricular wall thickness. The left ventricular systolic function is normal. Grade II - pseudonormal filling dynamics. Right ventricle is at the upper limits of normal. Left atrium is dilated. Right atrium is dilated. Mild aortic regurgitation. There is mild tricuspid regurgitation. Estimated PAP 47 mmHg. There is moderate pulmonary hypertension. There is no pericardial effusion. <ELECTRONICALLY SIGNED> By: Karthik Mohan MD 10/04/18 1152 1152 115 Karthik Mohan MD /INF
--- NOTE | ~2018-10-03 | HC ---
[facility] [place] [address] CONSULTATION Name: DONA EUGENE Room #: 454-P [facility] IN ..#: [id number] Admission: 10/04/18 Attend Phys: Alvin Garza MD Discharge: Date of : 40 Report #: [id number] THIS REPORT FOR: //name// CC: Zachary Garza TYPE OF REPORT: Pulmonary consultation. PRIMARY CARE PHYSICIAN: Zachary Gay D.O. REFERRAL PHYSICIAN: Alvin Garza M.D. REASON FOR REFERRAL: Dyspnea. HISTORY OF PRESENT ILLNESS: The patient is a 78-year-old white male who presents to the Emergency Room with right shoulder pain along with dyspnea. A pulmonary consultation was requested. The patient is known to this physician. He was recently diagnosed with adenocarcinoma involving the right upper lobe. He has been receiving chemotherapy over the last couple of months. He was receiving radiation therapy for the last couple of months. He states that he just finished his radiation therapy about 2 weeks ago. The patient had complained of dyspnea to his physicians several weeks ago. He was placed on low dose prednisone. He states that prednisone did help though not completely. Otherwise, denies any febrile illness, night sweats or chills, chest pain or productive cough. His baseline FEV1 measured 2.0 liters, 74% predicted, he has moderately severe THEODORE with an AHI around 31 events per hour, he is on CPAP. PAST MEDICAL HISTORY: As mentioned above including asthma/COPD overlap; bronchiectasis; atrial fibrillation; ejection fraction 35%; pulmonary artery pressure measuring 45; bronchiectasis; ischemic cardiomyopathy, ejection fraction mentioned above; past history of tobacco use, having quit in 1999 after smoking many years; hypertension; prostatic cancer; skin cancer; history of thyroid mass and valvular heart disease involving mild mitral regurgitation. PAST SURGICAL HISTORY: Prior back surgery, herniorrhaphy, skin cancer excision, tonsillectomy and TURP. ALLERGIES: To PENICILLIN, reaction not specified. HOME MEDICATIONS: List reviewed. This include Proventil p.r.n., amiodarone, [facility] [address] [place] [address] CONSULTATION Name: DONA EUGENE Room #: 454-P [facility] IN [facility].#: [id number] Admission: 10/04/18 Attend Phys: Alvin Garza MD Discharge: Date of : 40 Report #: [id number] Eliquis, Tenormin, Zyrtec, Cardizem, Trelegy Ellipta, multivitamins and prednisone 10 mg once a day. FAMILY HISTORY: Notable for thyroid cancer in the mother who at the age of 52. Father had liver cancer. He at 79 years of age. SOCIAL HISTORY: He smoked for about 20 years, a pack a day, he quit in 1999. He denies any alcohol use. The patient is . REVIEW OF SYSTEMS: As mentioned above, otherwise 10-point system review negative. PHYSICAL EXAMINATION: GENERAL: He is awake and alert, in no apparent distress. VITAL SIGNS: Temperature is 98 degrees Fahrenheit, pulse is 65, respiratory rate is 18, blood pressure 100/60 mmHg and saturation 94%. HEENT: Normocephalic and atraumatic. NECK: Supple, without any lymphadenopathy or thyromegaly. CHEST: Breath sounds are moderate with bibasilar crackles. No wheezes. CARDIOVASCULAR: Normal S1 and S2. No murmurs or gallop. There is no JVD. There is no carotid bruit. Pulses are 2+/4+ bilaterally. ABDOMEN: Soft and nontender. No organomegaly or masses felt. GENITOURINARY: Deferred. RECTAL: Deferred. EXTREMITIES: There is no edema, cyanosis or clubbing. RADIOLOGICAL DATA: Portable chest x-ray shows bibasilar interstitial infiltrates. Right upper lobe density is also noted. CT chest angiogram shows mild patchy interstitial changes seen in both lung damon. No evidence of pulmonary edema. No evidence of honeycombing. Echocardiogram performed earlier today showed normal LV function, left atrium is dilated, right atrium is dilated. Pulmonary pressure measuring 47 mmHg. LABORATORY DATA: Electrolytes are normal. Liver enzymes are normal. WBC 8600, hemoglobin 13.8 and no evidence of bandemia. Albumin 3.5. IMPRESSION: 1. Progressive dyspnea in this 78-year-old white male with history of lung cancer. He has just finished his radiation therapy to a few weeks ago. Chest x-ray and CT chest angiogram reviewed showing patchy bilateral interstitial infiltrates. The patient has been dyspneic for the past several weeks, better on steroids. Etiology probably related to radiation-induced lung injury. Pneumonia cannot be ruled out. I do not think it is related to heart failure. 2. Adenocarcinoma of the lung, right upper lobe, status post radiation therapy. He is felt to have mediastinal involvement, clinical stage 3. I believe he will need ongoing treatment including chemo. He just finished radiation therapy [facility] [address] [place] [address] CONSULTATION Name: DONA EUGENE #: 454-P [facility] IN ..#: [id number] Admission: 10/04/18 Attend Phys: Alvin Garza MD Discharge: Date of : 40 Report #: [id number] few weeks ago. 3. Asthma/chronic obstructive pulmonary disease overlap, moderate persistent, at baseline FEV1 of 1.0 liters, 61% predicted. 4. Obstructive sleep apnea, moderate to severe, on continuous positive airway pressure. 5. Coronary artery disease with improvement and cardiomyopathy. 6. Persistent atrial fibrillation. 7. Hypertension. 8. History of prostatic cancer. 9. History of thyroid mass. 10. History of skin cancer. RECOMMENDATIONS: We will increase corticosteroids to treat for presumed radiation-induced lung injury. Agree with broad-spectrum antibiotics. Bronchodilators. DVT and GI prophylaxis recommended. Duration of care, steroid therapy depends on clinical response. We will follow closely. Thank you for this consultation. <ELECTRONICALLY SIGNED> By: Myles Guerrier MD 10/05/18 1809 1857 0711 Myles Guerrier MD /nt
[~2018-10-03 22:31] MED LIST changes: +LASIX 40 MG TAB40 M2 PO; +POTASSIUM20 PO
[2018-10-03 22:32] VITALS: BP 144/89
[2018-10-03] MEDS ORDERED: SPIRIVA INH (22:44)
[2018-10-03] MEDS ORDERED: TRELEGY ELLIPT1 EACH IH (22:44)
[2018-10-03 23:13] LABS: ABSOLUTE NEUTROPHILS 6.6 thou/uL (1.4-8.2); BASOPHILS 0.6 % (0.0-2.0); EOSINOPHILS 1.6 % (0.0-3.0); HEMATOCRIT 40.1 % (42.0-52.0); HEMOGLOBIN 13.8 gm/dL (14.0-18.0); LYMPHOCYTES 10.3 % (24.0-44.0); MCHC 34.4 g/dL (28.0-37.0); MONOCYTES 10.4 % (1.0-8.0); PLATELET COUNT 204 thou/uL (150-400); POLYS 77.1 % (36.0-66.0); RBC 4.45 mil/uL (4.50-6.00); RDW 15.7 % (10.5-14.5); WBC 8.6 thou/uL (4.0-11.0)
[2018-10-03 23:22] LABS: ANION GAP 12 mmol/L (7-16); BUN 28 mg/dL (7-18); CALCIUM 8.7 mg/dL (8.5-10.1); CHLORIDE 102 mmol/L (98-107); CO2 24 mmol/L (21-32); CREATININE 1.1 mg/dL (0.7-1.3); GLUCOSE 108 mg/dL (74-106); POTASSIUM 4.3 mmol/L (3.5-5.1); SODIUM 138 mmol/L (136-145)
[2018-10-03 23:25] LABS: BE(vivo) 1.4 mmol/L (-2 to +3); HCO3 25.5 mmol/L (22.0-26.0); PCO2 VENOUS 38.6 mmHg (41.0-51.0); PO2 VENOUS 97.4 mmHg (35.0-45.0)
[2018-10-03 23:28] LABS: ALBUMIN 3.5 g/dL (3.4-5.0); SGOT 23 U/L (15-37); SGPT 53 U/L (30-65); TOTAL BILIRUBIN 0.3 mg/dL (<0.1-1.0); TOTAL PROTEIN 7.2 g/dL (6.4-8.2); TROPONIN-I <0.06 ng/mL (<0.06)
[2018-10-04] VITALS (7 sets, daily range): BP systolic 91–143; BP diastolic 54–87
[2018-10-04 06:09] LABS: CALCIUM 8.3 mg/dL (8.5-10.1); CREATININE 0.9 mg/dL (0.7-1.3); POTASSIUM 3.8 mmol/L (3.5-5.1)
[2018-10-05 02:51] VITALS: BP 109/65
[2018-10-05 08:43] VITALS: BP 115/73
[2018-10-05 16:47] VITALS: BP 119/78
[2018-10-05 22:56] VITALS: BP 132/80
[2018-10-06 07:07] LABS: ABSOLUTE NEUTROPHILS 9.5 thou/uL (1.4-8.2); BASOPHILS 0.4 % (0.0-2.0); HEMATOCRIT 40.8 % (42.0-52.0); HEMOGLOBIN 14.2 gm/dL (14.0-18.0); LYMPHOCYTES 3.6 % (24.0-44.0); MCHC 34.7 g/dL (28.0-37.0); MCV 89.3 fL (80.0-100.0); MONOCYTES 5.1 % (1.0-8.0); PLATELET COUNT 234 thou/uL (150-400); POLYS 90.9 % (36.0-66.0); RBC 4.57 mil/uL (4.50-6.00); RDW 15.6 % (10.5-14.5); WBC 10.5 thou/uL (4.0-11.0)
[2018-10-06 07:18] LABS: CREATININE 1.2 mg/dL (0.7-1.3); POTASSIUM 4.2 mmol/L (3.5-5.1)
[2018-10-06 08:29] VITALS: BP 119/99
[2018-10-06] MEDS ORDERED: DEMADEX 2020 MG/1 TA PO (12:08)
[2018-10-06] MEDS ORDERED: PREDNISONE 20 M20 M1 PO (12:08)
[2018-10-06] MEDS ORDERED: PEPCID20 MG PO (12:15)
[2018-10-06 12:42] VITALS: BP 119/94
[2018-10-06 13:05] VITALS: BP 93/59
== END 2018-10-06 13:09 | disposition home or self-care (01) | DRG 542 ==
LOC: ER 22:31 → EROBS 10-04 00:54 → 4W 10-04 00:54 → SICU 10-05 19:49 → ENTRNSPT 10-06 13:00 → EDTRNSPTSTS 10-06 13:01 → SICU 10-06 13:09
PROVIDERS: Hospitalist; Nurse Practitioner Family; Student in an Organized Health Care Education/Training Program
DX: C79.51 Secondary malignant neoplasm of bone (principal); I50.23 Acute on chronic systolic (congestive) heart failure; J70.0 Acute pulmonary manifestations due to radiation; J44.1 Chronic obstructive pulmonary disease with (acute) exacerbation; C34.11 Malignant neoplasm of upper lobe, right bronchus or lung; I48.1 Persistent atrial fibrillation; M84.511A Pathological fracture in neoplastic disease, right shoulder, initial encounter for fracture; M81.0 Age-related osteoporosis without current pathological fracture; I11.0 Hypertensive heart disease with heart failure; I25.5 Ischemic cardiomyopathy; G47.33 Obstructive sleep apnea (adult) (pediatric); Z85.46 Personal history of malignant neoplasm of prostate; Z92.3 Personal history of irradiation; Z87.891 Personal history of nicotine dependence; Z85.828 Personal history of other malignant neoplasm of skin; Z92.21 Personal history of antineoplastic chemotherapy; Z79.01 Long term (current) use of anticoagulants; Z79.51 Long term (current) use of inhaled steroids; Z79.82 Long term (current) use of aspirin; Z79.899 Other long term (current) drug therapy; Z88.0 Allergy status to penicillin; Z80.8 Family history of malignant neoplasm of other organs or systems
CPT/HCPCS: 10045; 15002

== ENCOUNTER 2018-10-15 10:18 | Inpatient (IN) | payer OTHER, BC ==
[~2018-10-15] VITALS: Ht 175.3 cm; Wt 103.4 kg
--- NOTE | ~2018-10-15 | EKG ---
[address] [place] [address] ELECTROCARDIOGRAM REPORT Name: DONA EUGENE Room #: 353-P [facility] IN .R.#: [id number] Admission: 10/15/18 Attend Phys: Benjamin Lester MD Discharge: Date of : 40 Report #: [id number] THIS REPORT FOR: //name// [facility] ED Test Date: 2018-10-15 Test Time: 10:36:49 Pat Name: DONA EUGENE Department: Room: 353 Gender: M Correctional Corporal: dillon : 1940 Requested By: Fadi Daniels Order Number: [id number] MD: Hector Cerda Measurements Intervals [place] Rate: 41 P: 35 NC: 160 QRS: 47 QRSD: 128 T: 31 QT: 505 QTc: 418 Interpretive Statements Sinus bradycardia Right bundle branch block Nonspecific ST-T wave changes Compared to ECG 10/03/2018 22:48:43 No significant changes Electronically Signed On 10-16-2018 17:55:09 JAVA SOFTWARE by Hector Cerda [email or web address] <ELECTRONICALLY SIGNED> By: Hector Cerda MD 10/16/18 1755 35 35 Hector Cerda MD /EPI
[~2018-10-15 10:18] MED LIST changes: +DEMADEX 2020 MG/1 TA PO; +PEPCID20 MG PO; +PREDNISONE 20 M20 M1 PO; +SPIRIVA INH; +TRELEGY ELLIPT1 EACH IH
[2018-10-15 10:22] VITALS: BP 111/67
[2018-10-15] MEDS ORDERED: FOSAMAX 70 MG T70 MG PO (10:44)
[2018-10-15 10:56] LABS: ABSOLUTE NEUTROPHILS 11.8 thou/uL (1.4-8.2); BASOPHILS 0.5 % (0.0-2.0); EOSINOPHILS 0.4 % (0.0-3.0); HEMATOCRIT 43.6 % (42.0-52.0); HEMOGLOBIN 14.7 gm/dL (14.0-18.0); LYMPHOCYTES 4.2 % (24.0-44.0); MCH 30.3 pg (26.0-34.0); MCHC 33.7 g/dL (28.0-37.0); MONOCYTES 7.2 % (1.0-8.0); PLATELET COUNT 277 thou/uL (150-400); POLYS 87.7 % (36.0-66.0); RBC 4.84 mil/uL (4.50-6.00); RDW 15.6 % (10.5-14.5); WBC 13.5 thou/uL (4.0-11.0)
[2018-10-15 11:00] LABS: ANION GAP 12 mmol/L (7-16); BUN 39 mg/dL (7-18); CALCIUM 9.2 mg/dL (8.5-10.1); CHLORIDE 100 mmol/L (98-107); CO2 24 mmol/L (21-32); CREATININE 1.6 mg/dL (0.7-1.3); GLUCOSE 124 mg/dL (74-106); POTASSIUM 4.4 mmol/L (3.5-5.1); SODIUM 136 mmol/L (136-145)
[2018-10-15 11:08] LABS: TROPONIN-I <0.06 ng/mL (<0.06)
[2018-10-15 13:07] VITALS: BP 98/70
[2018-10-15 13:34] VITALS: BP 100/68
[2018-10-15 16:24] VITALS: BP 94/63
[2018-10-15 19:32] VITALS: BP 116/73
[2018-10-16 00:12] VITALS: BP 99/71
[2018-10-16 05:34] VITALS: BP 127/83
[2018-10-16 05:47] LABS: HEMATOCRIT 39.9 % (42.0-52.0); HEMOGLOBIN 13.4 gm/dL (14.0-18.0); MCH 30.4 pg (26.0-34.0); MCHC 33.6 g/dL (28.0-37.0); MCV 90.6 fL (80.0-100.0); RBC 4.4 mil/uL (4.50-6.00); RDW 15.5 % (10.5-14.5); WBC 9.3 thou/uL (4.0-11.0)
[2018-10-16 05:59] LABS: CALCIUM 8.6 mg/dL (8.5-10.1); CREATININE 1.1 mg/dL (0.7-1.3); POTASSIUM 4.3 mmol/L (3.5-5.1)
[2018-10-16 07:46] VITALS: BP 106/69
[2018-10-16 12:19] VITALS: BP 107/67
[2018-10-16 17:07] VITALS: BP 134/71
[2018-10-16 19:50] VITALS: BP 136/81
[2018-10-17 00:10] VITALS: BP 101/55
[2018-10-17 04:10] VITALS: BP 130/85
[2018-10-17 06:17] LABS: HEMATOCRIT 38.5 % (42.0-52.0); HEMOGLOBIN 13.2 gm/dL (14.0-18.0); MCH 31.1 pg (26.0-34.0); MCHC 34.3 g/dL (28.0-37.0); MCV 90.7 fL (80.0-100.0); RBC 4.25 mil/uL (4.50-6.00); RDW 15.2 % (10.5-14.5); WBC 9.5 thou/uL (4.0-11.0)
[2018-10-17 06:30] LABS: CALCIUM 8.7 mg/dL (8.5-10.1); POTASSIUM 4.1 mmol/L (3.5-5.1)
[2018-10-17 08:34] VITALS: BP 99/64
[2018-10-17 14:38] VITALS: BP 99/64
[2018-10-20 19:06] LABS: AMIODARONE 0.6 ug/mL (1.0-2.5); DES-AMIODARONE 0.7 ug/mL (1.0-2.5)
== END 2018-10-17 15:29 | disposition home or self-care (01) | DRG 682 ==
LOC: ER 10:18 → 3W 12:42 → EROBS 12:42 → 3W 13:20
PROVIDERS: Hospitalist; Internal Medicine; Physician Assistant
DX: N17.9 Acute kidney failure, unspecified (principal); E43 Unspecified severe protein-calorie malnutrition; I42.9 Cardiomyopathy, unspecified; I48.91 Unspecified atrial fibrillation; J02.9 Acute pharyngitis, unspecified; I10 Essential (primary) hypertension; J44.9 Chronic obstructive pulmonary disease, unspecified; J45.909 Unspecified asthma, uncomplicated; I95.1 Orthostatic hypotension; R00.1 Bradycardia, unspecified; E86.0 Dehydration; I25.10 Atherosclerotic heart disease of native coronary artery without angina pectoris; Z85.46 Personal history of malignant neoplasm of prostate; Z85.118 Personal history of other malignant neoplasm of bronchus and lung; Z80.3 Family history of malignant neoplasm of breast; Z79.899 Other long term (current) drug therapy; Z88.0 Allergy status to penicillin; Z87.891 Personal history of nicotine dependence; Z79.01 Long term (current) use of anticoagulants; Z80.1 Family history of malignant neoplasm of trachea, bronchus and lung; Z80.8 Family history of malignant neoplasm of other organs or systems; Z79.82 Long term (current) use of aspirin
CPT/HCPCS: 10879

== ENCOUNTER → 2018-10-22 | Outpatient (CLI) | payer OTHER, BC ==
[~2018-10-22] MED LIST changes: +FOSAMAX 70 MG T70 MG PO
== END ==
LOC: MRI 09:51
DX: I67.82 Cerebral ischemia (principal); C34.11 Malignant neoplasm of upper lobe, right bronchus or lung; C79.51 Secondary malignant neoplasm of bone

== ENCOUNTER → 2018-11-30 | Outpatient (CLI) | payer OTHER | LOC: CAT 09:55 | DX: J98.11 Atelectasis (principal); J18.9 Pneumonia, unspecified organism; J45.909 Unspecified asthma, uncomplicated; R06.02 Shortness of breath; C34.11 Malignant neoplasm of upper lobe, right bronchus or lung ==